=== PATIENT | female | born 1965 | race Caucasian/White ===

== ENCOUNTER 2021-04-08 07:59 | Emergency (ER) | payer OTHER ==
[2021-04-08 08:47] VITALS: BP 112/56; PULSE 59; TEMP 99.1; BMI 24.7
== END 2021-04-08 08:49 | disposition home or self-care (01) ==
LOC: FER 07:59
DX: Z48.00 Encounter for change or removal of nonsurgical wound dressing (principal)
CPT/HCPCS: 99281-25